=== PATIENT | female | born 1995 | race Caucasian/White ===

== ENCOUNTER 2020-08-23 07:42 | Outpatient (RCR) | payer OTHER, SELFPAY ==
[2020-08-23] MEDS: COVID-19 VACC, MRNA(PFIZER)/PF 30 MCG/0.3 ML SYRINGE IM (16:42)
[2020-09-13] MEDS: COVID-19 VACC, MRNA(PFIZER)/PF 30 MCG/0.3 ML SYRINGE IM (16:29)
== END 2020-11-19 23:59 ==
LOC: IMMUN 07:42
PROVIDERS: PCP Registered Nurse; Visit Provider Family Medicine
DX: Z23 Encounter for immunization (principal)
CPT/HCPCS: 0001A; 0002A; 91300

== ENCOUNTER 2021-04-09 15:00 | Outpatient (RCR) | payer OTHER, SELFPAY | END 2021-04-13 23:59 | LOC: DC 15:00 | PROVIDERS: PCP Registered Nurse; Visit Provider Registered Nurse | DX: E11.9 Type 2 diabetes mellitus without complications (principal) | CPT/HCPCS: 97802; G0108 ==

== ENCOUNTER 2021-04-30 15:00 | Outpatient (RCR) | payer OTHER, SELFPAY | END 2021-05-13 23:59 | LOC: DC 15:00 | PROVIDERS: PCP Registered Nurse; Visit Provider Registered Nurse | DX: E11.9 Type 2 diabetes mellitus without complications (principal) | CPT/HCPCS: 97803; G0108 ==

== ENCOUNTER → 2025-03-08 | Outpatient (CLI) | payer OTHER, SELFPAY | END | disposition home or self-care (01) | LOC: MTRAD 16:20 | PROVIDERS: PCP Registered Nurse; Referring Provider Chiropractor; Visit Provider Chiropractor | DX: M99.03 Segmental and somatic dysfunction of lumbar region (principal); M99.05 Segmental and somatic dysfunction of pelvic region | CPT/HCPCS: 72110 ==

== ENCOUNTER 2025-04-15 18:16 | Emergency (ER) | payer OTHER, SELFPAY ==
[2025-04-15 18:16] VITALS: BP 130/84; PULSE 81; RESP 15; TEMP 36.4; O2SAT 100; BMI 31.8
--- NOTE | 2025-04-15 20:15 | EX.ED.UPPERE ---
HPI History of Present Illness HPI Narrative: 29-year-old female history of diabetes. [id number]. Was getting the pit out of an avocado about 2 hours ago. When she accidentally lacerated the palm of her left hand. Denies any numbness. No pulsatile bleeding. Unsure of her last tetanus believes it needs to be updated. No prior history of surgery to this hand. No other injuries. Chief Complaint: Laceration Informant: patient Occured/Mechanism Mechanism/Context: Yes injury Onset/Context/Timing Onset: Today and Hours Context: Sudden Onset Timing: Continuous Quality of Pain: Sharp Current Severity: Mild Maximum Severity: Mild Associated Symptoms Associated Symptoms: Negative for Parasthesia, Weakness or Loss of Funtion Narrative Narrative: 29-year-old female laceration left palm 2 hours prior to her arrival. Tetanus needs updated. Tetanus Immunization: >10 years Prior similar symptoms: No Recent Illness/Hospitalization: No PFSH PFS Medical History Depression Anxiety Migraine Type 2 diabetes mellitus without complication Home Medications ?Medication ?Instructions ?Recorded ?Last Taken ?Type desogestrel 0.15 mg-ethinyl 1 tab PO QDAY 03/08/25 Unknown History estradiol 0.03 mg tablet (Apri) fluoxetine 20 mg capsule 20 mg PO QDAY 03/08/25 Unknown History metformin 500 mg tablet 1,000 mg PO BID 03/08/25 Unknown History tirzepatide 5 mg/0.5 mL 5 mg subcut QWEEK 04/15/25 Unknown History subcutaneous pen injector (Mounjaro) Allergy/AdvReac Type Severity Reaction Status Date / Time No Known Allergies Allergy Verified 04/15/25 18:16 Social History Smoking Status: Never smoker alcohol intake: current substance use type: does not use frequency: 3-4 times per week ROS ROS ED ROS Narrative Recent URI. Constitutional Constitutional ED: Denies chills or fever(s) Eyes Eyes: Denies blurry vision ENT ENT ED: Denies ear pain Cardiovascular Cardiovascular: Denies chest pain Respiratory/Chest Respiratory/Chest: Reports cough; Denies dyspnea Gastrointestinal Gastrointestinal: Denies abdominal pain Genitourinary Genitourinary ED: Denies dysuria or hematuria Musculoskeletal Musculoskeletal: Denies back pain Integumentary Denies abscess Neurologic Neurologic: Denies headache(s) Endocrine Endocrinology: Denies cold intolerance Hematologic/Lymphatic Hematologic/Lymphatic: Denies easy bleeding, easy bruising or lymphadenopathy Allergic/Immunologic Allergic/Immunologic ED: Denies mouth swelling, tongue swelling or urticaria EXAM Physical Exam Narrative Exam Narrative: Well-appearing 29-year-old female. Sitting upright in bed. No acute distress. Significant other at bedside. Vital signs are stable and afebrile. H EENT exam pupils round react light. Moist membranes. Neck nontender. Lungs clear equal symmetrical. Heart regular rhythm rate about 80 no murmur. Chest wall ribs nontender. Abdomen soft nontender. Moving all 4 extremities. Neurovascular intact. Normal range of motion. Left hand palm specifically there is about a 1 inch laceration involving skin and subcu tissue. Currently no active bleeding. No hematoma. No pulsatile bleeding. Full flexion extension of the wrist nontender. Full flexion-extension all digits of her left hand. Normal cap refill. Normal touch sensation. Normal strength. Otherwise exam unremarkable. No signs of infection or foreign body in the laceration. Const Vital Signs: 04/15/25 18:16 Temperature 97.5 F L Temperature Source Temporal Pulse Rate 81 Respiratory Rate 15 Blood Pressure 130/84 H Blood Pressure Mean 99 Pulse Ox 100 Oxygen Delivery Method Room Air MDM MDM MDM Narrative Medical decision making narrative: 29-year-old female laceration left palm on the proximal hand. Will be locally anesthetized with lidocaine. Cleaned and washed with saline and Shur-Clens. Irrigated and explored. Closed using 4-0 Ethilon sutures. Discharged to home. Wound instructions. And suture removal in 7 to 10 days. Tetanus will be updated. History & Record Review Discussion w/independent historian: Patient and Significant other Procedures Lacerations Left hand palm laceration repair.: Length: 1 in Depth: Sub Q Shape: Linear Prep: Shure-Clens Laceration repair: Irrigated, Lidocaine, Local and Skin sutures Number of Sutures/Adams: 3 Suture Information: Ethilon, Simple and 4-0 Comment: Left proximal palm laceration. 1 to 1/2 inches in length. Local anesthetized lidocaine. Cleaned with Shur-Clens. Washed irrigated with saline. Explored. No foreign body seen or felt. Closed using 3 simple interrupted 4-0 Ethilon sutures. Proper hemostasis wound closure obtained. Patient was instructed on wound care and reasons to return. Suture removal in 10 days. Discharge Plan Triage Chief Complaint: Laceration ED Provider: Rolando Ro Dx/Rx/DC Orders Clinical Impression: Hand laceration, History of diabetes mellitus Instructions: ED Laceration, All Closures Prescriptions: No Action metformin 500 mg tablet 1,000 mg PO BID desogestrel-ethinyl estradiol [Apri] 0.15-0.03 mg tablet 1 tab PO QDAY fluoxetine 20 mg capsule 20 mg PO QDAY Mounjaro 5 mg/0.5 mL pen injector 5 mg subcut QWEEK Patient Comments: MONDAYS Primary Care Provider: Adriane Root NP Referrals: Adriane Root NP, [facility] [Primary Care Provider, Medical] - 10 Day for suture removal Activity Restrictions/Additional Instructions: Ice and elevate. Motrin and Tylenol for pain. Clean daily with soap water peroxide water. Apply antibiotic ointment. Watch for any signs of infection if seen such as redness, pus, swelling, increasing pain or fever return. Stitches out in 7 to 10 days. Keep it clean and dry. Can get wet but dry off well. Do not let it soak in any water. Print Language: Slovenian Disposition Disposition: Home, Self Care
[2025-04-15] MEDS: Lidocaine 1% (20 ml mdv) 20 ML Vial 10 ML INFILT (20:19)
[2025-04-15 20:33] VITALS: BP 133/82; PULSE 73; RESP 16; TEMP 36.6; O2SAT 100
== END 2025-04-15 20:51 | disposition home or self-care (01) ==
LOC: ED 20:22
PROVIDERS: Emergency Provider Emergency Medicine; PCP Registered Nurse; Visit Provider Emergency Medicine
DX: S61.412A Laceration without foreign body of left hand, initial encounter (principal); E11.9 Type 2 diabetes mellitus without complications; Z23 Encounter for immunization; Z79.85 Long-term (current) use of injectable non-insulin antidiabetic drugs; W26.0XXA Contact with knife, initial encounter; Y93.G3 Activity, cooking and baking
CPT/HCPCS: 12001; 90471; 99283